=== PATIENT | female | born 1970 | race American Indian/Alaskan Native ===

== ENCOUNTER 2017-09-23 06:38 | Emergency (ER) | payer OTHER ==
[2017-09-23 06:45] VITALS: BP 162/76
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
== END 2017-09-23 09:49 | disposition home or self-care (01) ==
LOC: ED 06:38
DX: S39.012A Strain of muscle, fascia and tendon of lower back, initial encounter (principal); V49.49XA Driver injured in collision with other motor vehicles in traffic accident, initial encounter; Y93.89 Activity, other specified; Y92.89 Other specified places as the place of occurrence of the external cause; Y99.8 Other external cause status; I10 Essential (primary) hypertension
CPT/HCPCS: 99282